=== PATIENT | male | born 1990 | race African-American/Black ===

== ENCOUNTER 2016-10-05 02:46 | Emergency (ER) | payer OTHER ==
[~2016-10-05] VITALS: Ht 180.3 cm; Wt 72.6 kg
--- NOTE | 2016-10-05 03:15 | NUR ---
patient located his perscription refill in his inner jacket pocket. He states he no longer needs mc seen by the MD , nor does he require any further services. Patient left ER in stable condition. No distress noted. All belongings with patient.
== END 2016-10-05 03:20 | disposition left against medical advice (07) ==
LOC: ER 02:52
DX: Z53.21 Procedure and treatment not carried out due to patient leaving prior to being seen by health care provider (principal)